=== PATIENT | female | born 1980 | race Two or more races ===

== ENCOUNTER 2018-11-10 12:03 | Emergency (ER) | payer MEDICAID ==
[~2018-11-10] VITALS: Ht 152.4 cm; Wt 98.4 kg
[2018-11-10] MEDS ORDERED: SEROQUEL200 MG ORAL (12:13)
--- NOTE | 2018-11-10 12:19 | NUR ---
ED Nurse Note: pt came to ED self ambulatory. pt c/o bodyaches getting worse over the weeks. pt pain 04/16. pt states taking motrin but has not taken any today. will wait for further orders.
[2018-11-10 12:20] VITALS: BP 131/77
--- NOTE | 2018-11-10 12:24 | Emergency Room Report ---
History of Present Illness General Chief Complaint: Pain Source: Patient Present Illness HPI Patient is a 38-year-old female presents for after increased generalized body aches. Patient reports that this is worsened over the past 1 week. Patient had been having symptoms for several months. Patient had been taking Seroquel for bipolar disorder. She denies any fever. She denies any vomiting. She states she gets intermittent headaches. She denies any new numbness or weakness. Pain was described as aching throughout her entire body. She denies any recent changes in her medications. She denies being . Allergies: Coded Allergies: PENICILLINS (Verified Allergy, Unknown, rash, 11/10/18) Patient History Past Medical History: see triage record Last Menstrual Period: 10/24/18 Reviewed Nursing Documentation: PMH: Agreed; PSxH: Agreed Nursing Documentation-PM Past Medical History: No History, Except For History Of Psychiatric Problem: Yes - bipolar Review of Systems All Other Systems: negative except mentioned in HPI Physical Exam Vital Signs Date Time Temp Pulse Resp B/P (MAP) Pulse Ox O2 Delivery O2 Flow Rate FiO2 11/10/18 12:10 98.2 109 18 138/86 97 Room Air Sp02 EP Interpretation: reviewed, normal General Appearance: normal inspection, well appearing, no apparent distress, alert, GCS 15, obese Head: atraumatic ENT: normal ENT inspection, hearing grossly normal, normal voice Neck: normal inspection, full range of motion, supple, no bony tend Respiratory: normal inspection, lungs clear, normal breath sounds, no respiratory distress, no retraction, no wheezing Cardiovascular #1: regular rate, rhythm, no edema Gastrointestinal: normal inspection, normal bowel sounds, non tender, soft, no guarding, no hernia Genitourinary: no CVA tenderness Musculoskeletal: normal inspection, back normal, normal range of motion Neurologic: normal inspection, alert, oriented x3, responsive, 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 Differential diagnosis included was not limited to anemia, urinary tract infection, electrolyte abnormality, hypothyroidism, myocardial infarction, myasthenia gravis, dehydration, fibromyalgia among others. Because of complexity of patient's case laboratory testing and imaging studies were ordered. Patient was noted to have nonspecific pain. This is been long-standing. Laboratory testing was ordered to rule out thyroid abnormalities or rhabdomyolysis. Patient was given IV fluids. She was noted to have prior history of fibromyalgia in her family. Patient does not show any definite evidence of dehydration or rhabdomyolysis. Patient states that she does smoke and use marijuana intermittently. Patient's laboratory testing was unremarkable. Patient was advised to have a white blood count rechecked. She is advised to follow-up with her primary care physician for further workup which may include further workup for rheumatoid disease and imaging studies. Patient was advised smoking cessation. She does not appear to be in any acute distress. She was advised to return if she felt worse. Labs Test 11/10/18 12:40 White Blood Count 11.5 K/UL (4.8-10.8) Red Blood Count 4.69 M/UL (4.20-5.40) Hemoglobin 13.6 G/DL (12.0-16.0) Hematocrit 42.4 % (37.0-47.0) Mean Corpuscular Volume 91 FL (80-99) Mean Corpuscular Hemoglobin 29.0 PG (27.0-31.0) Mean Corpuscular Hemoglobin Concent 32.0 G/DL (32.0-36.0) Red Cell Distribution Width 12.7 % (11.6-14.8) Platelet Count 358 K/UL (150-450) Mean Platelet Volume 6.5 FL (6.5-10.1) Neutrophils (%) (Auto) 57.3 % (45.0-75.0) Lymphocytes (%) (Auto) 30.6 % (20.0-45.0) Monocytes (%) (Auto) 8.5 % (1.0-10.0) Eosinophils (%) (Auto) 2.2 % (0.0-3.0) Basophils (%) (Auto) 1.4 % (0.0-2.0) Urine Color Pale yellow Urine Appearance Clear Urine pH 8 (4.5-8.0) Urine Specific [place] 1.010 (1.005-1.035) Urine Protein Negative (NEGATIVE) Urine Glucose (UA) Negative (NEGATIVE) Urine Ketones Negative (NEGATIVE) Urine Blood Negative (NEGATIVE) Urine Nitrite Negative (NEGATIVE) Urine Bilirubin Negative (NEGATIVE) Urine Urobilinogen Normal MG/DL (0.0-1.0) Urine Leukocyte Esterase Negative (NEGATIVE) Urine RBC 0 /HPF (0 - 2) Urine WBC 0 /HPF (0 - 2) Urine Squamous Epithelial Cells Few /LPF (NONE/OCC) Urine Bacteria Occasional /HPF (NONE) Urine HCG, Qualitative Negative (NEGATIVE) Sodium Level 137 MMOL/L (136-145) Potassium Level 4.0 MMOL/L (3.5-5.1) Chloride Level 101 MMOL/L (98-107) Carbon Dioxide Level 26 MMOL/L (21-32) Anion Gap 10 mmol/L (5-15) Blood Urea Nitrogen 13 mg/dL (7-18) Creatinine 1.0 MG/DL (0.55-1.30) Estimat Glomerular Filtration Rate > 60 mL/min (>60) Glucose Level 92 MG/DL (74-106) Calcium Level 9.7 MG/DL (8.5-10.1) Total Bilirubin 0.4 MG/DL (0.2-1.0) Aspartate Amino Transf (AST/SGOT) 16 U/L (15-37) Alanine Aminotransferase (ALT/SGPT) 22 U/L (12-78) Alkaline Phosphatase 61 U/L (46-116) Total Creatine Kinase 209 U/L (26-308) Total Protein 7.5 G/DL (6.4-8.2) Albumin 3.6 G/DL (3.4-5.0) Globulin 3.9 g/dL Albumin/Globulin Ratio 0.9 (1.0-2.7) Thyroid Stimulating Hormone (TSH) 1.054 uiU/mL (0.358-3.740) Last Vital Signs Date Time Temp Pulse Resp B/P (MAP) Pulse Ox O2 Delivery O2 Flow Rate FiO2 11/10/18 12:10 98.2 109 18 138/86 97 Room Air Status: improved Disposition: HOME, SELF-CARE Condition: Stable Scripts Ibuprofen* (MOTRIN*) 600 Mg Tablet 600 MG ORAL Q8H PRN for For Pain, #30 TAB 0 Refills Prov: Sukhjinder Mak MD 11/10/18 Sukhjinder Mak MD Nov 10, 2018 12:24
[2018-11-10] MEDS ORDERED: Ketorolac 30mg Inj IV ONE (12:30)
[2018-11-10 12:52] LABS: BASOPHILS % (AUTO) 1.4 % (0.0-2.0); EOSINOPHILS % (AUTO) 2.2 % (0.0-3.0); HEMATOCRIT 42.4 % (37.0-47.0); HEMOGLOBIN 13.6 G/DL (12.0-16.0); LYMPHOCYTES % (AUTO) 30.6 % (20.0-45.0); MEAN CORPUSCULAR VOLUME 91 FL (80-99); MONOCYTES % (AUTO) 8.5 % (1.0-10.0); NEUTROPHILS % (AUTO) 57.3 % (45.0-75.0); PLATELET COUNT 358 K/UL (150-450); RED BLOOD COUNT 4.69 M/UL (4.20-5.40); RED CELL DISTRIBUTION WIDTH 12.7 % (11.6-14.8); WHITE BLOOD COUNT 11.5 K/UL (4.8-10.8)
[2018-11-10 12:58] LABS: APPEARANCE,URINE CLEAR; BILIRUBIN, URINE NEGATIVE (NEGATIVE); COLOR,URINE PALE YELLOW; GLUCOSE, URINE (UA) NEGATIVE (NEGATIVE); KETONES,URINE NEGATIVE (NEGATIVE); LEUKOCYTE ESTERASE ,URINE NEGATIVE (NEGATIVE); NITRITE,URINE NEGATIVE (NEGATIVE); PH,URINE 8 (4.5-8.0); PROTEIN,URINE NEGATIVE (NEGATIVE); UROBILINOGEN,URINE NORMAL MG/DL (0.0-1.0)
[2018-11-10 13:06] LABS: ANION GAP 10 mmol/L (5-15); BLOOD UREA NITROGEN 13 mg/dL (7-18); CALCIUM 9.7 MG/DL (8.5-10.1); CARBON DIOXIDE 26 MMOL/L (21-32); CHLORIDE 101 MMOL/L (98-107); SODIUM 137 MMOL/L (136-145)
[2018-11-10 13:19] LABS: ALANINE AMINOTRANSFERASE 22 U/L (12-78); ALBUMIN 3.6 G/DL (3.4-5.0); ALBUMIN/GLOBULIN RATIO 0.9 (1.0-2.7); ALKALINE PHOSPHATASE 61 U/L (46-116); ASPARTATE AMINO TRANSFERASE 16 U/L (15-37); BILIRUBIN,TOTAL 0.4 MG/DL (0.2-1.0); CREATINE KINASE 209 U/L (26-308)
[2018-11-10] MEDS ORDERED: IBUPROFEN600 MG ORAL (14:06)
--- NOTE | 2018-11-10 14:18 | NUR ---
ED Nurse Note: Pt is DC per MD orders, pt was given dc and prescription education. pt ID band removed. pt Iv site discontinued. pt is aao x 4. vital signs stable. pt is ambulatory with steady gait. pt has left with all belongings.
[2018-11-10 14:20] VITALS: BP 128/68
== END 2018-11-10 14:18 | disposition home or self-care (01) ==
LOC: EMR 12:25
DX: M79.10 Myalgia, unspecified site (principal); F31.9 Bipolar disorder, unspecified; F17.200 Nicotine dependence, unspecified, uncomplicated; Z88.0 Allergy status to penicillin
CPT/HCPCS: 36415; 80053; 81001; 81025; 82550; 84443; 85025; 96374; 99284; J1885

== ENCOUNTER 2019-04-20 00:29 | Emergency (ER) | payer MEDICAID ==
[~2019-04-20] VITALS: Ht 152.4 cm; Wt 99.8 kg
[~2019-04-20 00:29] MED LIST: IBUPROFEN600 MG ORAL; SEROQUEL200 MG ORAL
[2019-04-20 00:37] VITALS: BP 126/78
--- NOTE | 2019-04-20 00:37 | NUR ---
ED Nurse Note: Pt arrived ED from home, c/o left ear pain for 2 days. Pt is A/O X4. VSS, waiting for orders.
--- NOTE | 2019-04-20 01:08 | Emergency Room Report ---
History of Present Illness General Chief Complaint: Earache Source: Patient Present Illness HPI Patient presents with left ear pain. This is going on for 2 days. She also has pain radiates down her neck slightly. She denies any sore throat, fever, nasal congestion. She has been aggressively cleaning the ear. She also has a minimal amount of discomfort on the right-hand side. The pain is rated 7/10, constant, pressure and aching. There are no skin rashes. She is in a [facility]. She feels safe. She denies being at this time. No dysuria, nausea, vomiting, diarrhea , abdominal pain, chest pain, productive cough. Allergies: Coded Allergies: PENICILLINS (Verified Allergy, Unknown, rash, 11/10/18) Patient History Past Medical History: see triage record Social History: Reports: smoking Social History Narrative [facility] Last Menstrual Period: 03/22/19 : 9 Para: 3 Reviewed Nursing Documentation: PMH: Agreed; PSxH: Agreed Nursing Documentation-PMH Past Medical History: No Stated History Review of Systems All Other Systems: negative except mentioned in HPI Physical Exam Vital Signs Date Time Temp Pulse Resp B/P (MAP) Pulse Ox O2 Delivery O2 Flow Rate FiO2 04/20/19 00:33 97.9 101 18 126/78 (94) 97 Room Air Sp02 EP Interpretation: reviewed, normal General Appearance: well appearing, no apparent distress, GCS 15 Head: normocephalic, atraumatic Eyes: bilateral eye normal inspection, bilateral eye PERRL ENT: hearing grossly normal, normal voice, other - Left TM with redness and opacity and bulging. Minimal pinna tenderness with motion. Mastoid is nontender to palpation. Right TM normal but canal has some cerumen. No pain at tenderness Neck: full range of motion, supple, no meningismus, no bony tend Respiratory: chest non-tender, lungs clear, normal breath sounds, no respiratory distress, speaking full sentences Cardiovascular #1: regular rate, rhythm Cardiovascular #2: 2+ radial (R) Gastrointestinal: normal inspection Musculoskeletal: digits/nails normal, gait/station normal, normal range of motion Neurologic: alert, oriented x3, grossly normal Psychiatric: mood/affect normal Skin: no rash Medical Decision Making Diagnostic Impression: Primary Impression: Otitis media Qualified Codes: H66.002 - Acute suppurative otitis media without spontaneous rupture of ear drum, left ear Additional Impression: Otitis externa Qualified Codes: H60.502 - Unspecified acute noninfective otitis externa, left ear ER Course Patient presents with left ear pain. Differential includes otitis media, otitis externa, mastoiditis amongst others. Exam is consistent with otitis media. Patient is treated for pain as well as antibiotics begun. Levaquin used as need to cover pseudamonas and patient allergic to PCN. Discussed treatment plan with patient. Patient stable for outpatient observation and treatment. Last Vital Signs Date Time Temp Pulse Resp B/P (MAP) Pulse Ox O2 Delivery O2 Flow Rate FiO2 04/20/19 01:44 97.9 04/20/19 01:21 83 18 123/76 97 Room Air Status: improved Disposition: HOME, SELF-CARE Condition: Improved Scripts Ibuprofen* (MOTRIN*) 600 Mg Tablet 600 MG ORAL Q6H PRN for For Pain, #20 TAB 0 Refills Prov: Son Mckay MD 04/20/19 Hydrocodone Bit/Acetaminophen 5-325* (NORCO 5-325*) 1 Each Tablet 1 TAB ORAL Q6H PRN for For Pain, #8 TAB 0 Refills Prov: Son Mckay MD 04/20/19 Neomycin/Polymyxin B Sulf/Hc* (CORTISPORIN EAR SOLUTION*) 10 Ml Solution 4 DROP LEFT EAR QID, #10 ML 0 Refills Prov: Son Mckay MD 04/20/19 Levofloxacin* (LEVAQUIN*) 500 Mg Tablet 500 MG ORAL DAILY, #7 TAB Prov: Son Mckay MD 04/20/19 Son Mckay MD Apr 20, 2019 01:08
[2019-04-20] MEDS ORDERED: LEVAQUIN500 MG ORAL (01:10)
[2019-04-20] MEDS ORDERED: CORTISPORIN EAR10 ML LEFT EAR (01:10)
[2019-04-20] MEDS ORDERED: NORCO 5-325 TA1 EACH ORAL (01:10)
[2019-04-20] MEDS ORDERED: IBUPROFEN600 MG ORAL (01:10)
[2019-04-20] MEDS ORDERED: HYDROcodone/Acetamin 5/325 tab ORAL ONE (01:15)
[2019-04-20] MEDS ORDERED: Levofloxacin 500mg tab ORAL ONE (01:15)
[2019-04-20 01:21] VITALS: BP 123/76
--- NOTE | 2019-04-20 01:21 | NUR ---
ER DISCHARGE NOTE: Patient is cleared to be discharged per Dr. Mckay. Pt is aox4 on room air with stable vital signs. Pt was given dc and prescription instructions and was able to verbalize understanding. Pt's id band removed. Pt is able to ambulate with steady gait and took all belongings.
== END 2019-04-20 01:21 | disposition home or self-care (01) ==
LOC: EMR 00:59
DX: H66.002 Acute suppurative otitis media without spontaneous rupture of ear drum, left ear (principal); H60.502 Unspecified acute noninfective otitis externa, left ear; Z88.0 Allergy status to penicillin; F17.200 Nicotine dependence, unspecified, uncomplicated
CPT/HCPCS: 99283

== ENCOUNTER 2019-04-30 15:32 | Emergency (ER) | payer MEDICAID ==
[~2019-04-30] VITALS: Ht 152.4 cm; Wt 90.7 kg
[~2019-04-30 15:32] MED LIST changes: +CORTISPORIN EAR10 ML LEFT EAR; +LEVAQUIN500 MG ORAL; +NORCO 5-325 TA1 EACH ORAL
[2019-04-30] MEDS ORDERED: PROZAC10 MG ORAL (15:43)
[2019-04-30 15:46] VITALS: BP 135/69
--- NOTE | 2019-04-30 15:47 | NUR ---
ED Nurse Note: pt walked in to ED due to multiple pain. c/o right knee and abdominal pain. no n/v/d. AAO x4. respirations even and non-labored noted. will wait for the further order.
[2019-04-30] MEDS ORDERED: Ketorolac 30mg Inj IM ONE (16:00)
[2019-04-30 16:51] LABS: BASOPHILS % (AUTO) 0.8 % (0.0-2.0); EOSINOPHILS % (AUTO) 2.9 % (0.0-3.0); HEMATOCRIT 34.4 % (37.0-47.0); HEMOGLOBIN 11.8 G/DL (12.0-16.0); LYMPHOCYTES % (AUTO) 34.7 % (20.0-45.0); MEAN CORPUSCULAR VOLUME 85 FL (80-99); MONOCYTES % (AUTO) 11.7 % (1.0-10.0); NEUTROPHILS % (AUTO) 49.8 % (45.0-75.0); PLATELET COUNT 312 K/UL (150-450); RED BLOOD COUNT 4.04 M/UL (4.20-5.40); WHITE BLOOD COUNT 9.9 K/UL (4.8-10.8)
[2019-04-30 17:01] LABS: APPEARANCE,URINE CLEAR; BILIRUBIN, URINE NEGATIVE (NEGATIVE); COLOR,URINE PALE YELLOW; GLUCOSE, URINE (UA) NEGATIVE (NEGATIVE); KETONES,URINE NEGATIVE (NEGATIVE); LEUKOCYTE ESTERASE ,URINE 1+ (NEGATIVE); NITRITE,URINE NEGATIVE (NEGATIVE); PH,URINE 7 (4.5-8.0); PROTEIN,URINE NEGATIVE (NEGATIVE); UROBILINOGEN,URINE NORMAL MG/DL (0.0-1.0)
[2019-04-30 17:05] LABS: ANION GAP 9 mmol/L (5-15); BLOOD UREA NITROGEN 11 mg/dL (7-18); CALCIUM 9.5 MG/DL (8.5-10.1); CARBON DIOXIDE 27 MMOL/L (21-32); CHLORIDE 107 MMOL/L (98-107); CREATININE 0.9 MG/DL (0.55-1.30); POTASSIUM 4.2 MMOL/L (3.5-5.1); SODIUM 143 MMOL/L (136-145)
[2019-04-30 17:10] LABS: ALANINE AMINOTRANSFERASE 38 U/L (12-78); ALBUMIN 3.5 G/DL (3.4-5.0); ALBUMIN/GLOBULIN RATIO 0.9 (1.0-2.7); ALKALINE PHOSPHATASE 61 U/L (46-116); ASPARTATE AMINO TRANSFERASE 19 U/L (15-37); BILIRUBIN,TOTAL 0.1 MG/DL (0.2-1.0)
--- NOTE | 2019-04-30 17:36 | Emergency Room Report ---
History of Present Illness General Chief Complaint: Pain Source: Patient Present Illness HPI 38-year-old female with history of generalized body ache, who was previously seen for the same reason here few months ago here complaining of increased aching in the past few days. Rating her pain 10 out of 10 without radiation denying tingling and numbness. Patient is previously told at [facility] that she possibly has fibromyalgia and needs to follow-up with her primary care provider for further testing referrals. Patient reports that she just went to her primary care provider few days ago due to abdominal pain and bloating was diagnosed with H. pylori and started on proper management. However forgot to discuss her generalized pain of several months with her PCP. Patient reports that she has been taking [id number] ibuprofen and Tylenol with minimal relief and asking for stronger pain medication. She is also requesting blood work for possible causes of generalized body ache. Denies injury, fall, chest pain, shortness of breath, palpitation, nausea vomiting. Denies drug use, smoking, alcohol intake. She also complains of generalized swelling all over her body. Allergies: Coded Allergies: PENICILLINS (Verified Allergy, Unknown, rash, 11/10/18) Patient History Past Medical History: see triage record Past Surgical History: unable to obtain Pertinent Family History: none Now: No Immunizations: UTD Reviewed Nursing Documentation: PMH: Agreed; PSxH: Agreed Nursing Documentation-PMH Past Medical History: No History, Except For Review of Systems All Other Systems: negative except mentioned in HPI Physical Exam Vital Signs Date Time Temp Pulse Resp B/P (MAP) Pulse Ox O2 Delivery O2 Flow Rate FiO2 04/30/19 15:39 98.4 98 18 135/69 (91) 96 Room Air Sp02 EP Interpretation: reviewed, normal General Appearance: normal inspection, alert, GCS 15 Head: normocephalic, atraumatic Eyes: bilateral eye normal inspection, bilateral eye PERRL ENT: normal ENT inspection, hearing grossly normal, normal pharynx Neck: normal inspection, full range of motion, supple Respiratory: normal inspection, chest non-tender, normal breath sounds, no rhonchi, no wheezing Cardiovascular #1: normal inspection, regular rate, rhythm, no gallop, no murmur, normal capillary refill Cardiovascular #2: 2+ dorsalis pedis (R), 2+ dorsalis pedis (L) Gastrointestinal: normal inspection, normal bowel sounds, non tender, soft Genitourinary: no CVA tenderness Musculoskeletal: normal inspection, back normal, digits/nails normal Neurologic: normal inspection, alert, oriented x3, responsive, 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 Jones Diagnostic Impression: Primary Impression: Iron deficiency anemia Additional Impression: Generalized body aches ER Course 38-year-old female with history of generalized body ache, who was previously seen for the same reason here few months ago here complaining of increased aching in the past few days. Rating her pain 10 out of 10 without radiation denying tingling and numbness. Patient is previously told at [facility] that she possibly has fibromyalgia and needs to follow-up with her primary care provider for further testing referrals. Patient reports that she just went to her primary care provider few days ago due to abdominal pain and bloating was diagnosed with H. pylori and started on proper management. However forgot to discuss her generalized pain of several months with her PCP. Patient reports that she has been taking [id number] ibuprofen and Tylenol with minimal relief and asking for stronger pain medication. She is also requesting blood work for possible causes of generalized body ache. Denies injury, fall, chest pain, shortness of breath, palpitation, nausea vomiting. Denies drug use, smoking, alcohol intake. She also complains of generalized swelling all over her body. Ddx considered but are not limited to: Generalized body aches chronic, iron deficiency anemia, fibromyalgia, H. pylori, Vital signs: are WNL, pt. is afebrile H&PE are most consistent with: generalized body aches chronic, iron deficiency anemia ORDERS: cbc, cmp, UA, toradol, robaxin, ibuprofen, ferrous sulfate ED INTERVENTIONS: toradol DISCHARGE: At this time pt. is stable for d/c to home. Will provide printed patient care instructions, and any necessary prescriptions. Care plan and follow up instructions have been discussed with the patient prior to discharge. Patient to follow-up with a primary care provider for management of possible fibromyalgia patient to be sent to pain management as well as physical therapy also more nerve related pain medication to be started by primary care physician. At this point I discussed with the patient in no stronger pain medication can be given and due to her having generalized swelling anti- inflammatories are highly advised. Also her abdominal bloating and pain is secondary to H. pylori infection as well as intake of metronidazole. Hemoglobin 11 hematocrit 33 Last Vital Signs Date Time Temp Pulse Resp B/P (MAP) Pulse Ox O2 Delivery O2 Flow Rate FiO2 04/30/19 15:46 98.4 98 18 135/69 96 Room Air Disposition: HOME, SELF-CARE Condition: Stable Scripts Ibuprofen* (MOTRIN*) 600 Mg Tablet 600 MG ORAL Q8H PRN for For Pain, #30 TAB 0 Refills Prov: Nadya Waldron 04/30/19 Methocarbamol* (ROBAXIN*) 500 Mg Tablet 500 MG PO TID, #21 TAB 0 Refills Prov: Nadya Waldron 04/30/19 Ferrous Sulfate (Ferrous Sulfate) 325 Mg Tablet 1 TAB ORAL TWICE A DAY, #60 TAB 0 Refills Prov: Nadya Waldron 04/30/19 Referrals: [facility]ERR[facility] (PCP) Patient Instructions: Iron Deficiency Anemia, Adult, [id number], Muscle Pain , Adult Additional Instructions: Follow-up with the primary care provider for possible fibromyalgia assessment take medication as directed minimal iron deficiency anemia noted take your iron pills as been prescribed. At this point you have chronic muscle ache that needs to be evaluated by primary care doctor and further referrals which can be requested by your primary care physician. Nadya Waldron Apr 30, 2019 17:35
[2019-04-30] MEDS ORDERED: IBUPROFEN600 MG ORAL (17:44)
[2019-04-30] MEDS ORDERED: ROBAXIN500 MG PO (17:44)
[2019-04-30] MEDS ORDERED: FEOSOL1 TAB ORAL (17:44)
[2019-04-30 17:57] VITALS: BP 127/70
--- NOTE | 2019-04-30 17:58 | NUR ---
ER DISCHARGE NOTE: Patient is cleared to be discharged per ERMD, pt is aox4, on room air, with stable vital signs. pt was given dc and prescription instructions, pt was able to verbalize understanding, pt id band removed. pt is able to ambulate with steady gait. pt took all belongings.
== END 2019-04-30 17:59 | disposition home or self-care (01) ==
LOC: EMR 17:25
DX: D50.9 Iron deficiency anemia, unspecified (principal); R52 Pain, unspecified; Z88.0 Allergy status to penicillin
CPT/HCPCS: 36415; 80053; 81001; 85025; 96372; 99283; J1885

== ENCOUNTER 2019-05-25 20:01 | Emergency (ER) | payer MEDICAID ==
[~2019-05-25] VITALS: Ht 157.5 cm; Wt 100.2 kg
[~2019-05-25 20:01] MED LIST changes: +FEOSOL1 TAB ORAL; +PROZAC10 MG ORAL; +ROBAXIN500 MG PO
--- NOTE | 2019-05-25 20:22 | NUR ---
ED Nurse Note: pt walked in c/o heartburn and acid reflux about 2 days, pt states she recently finished regimen for hpylori and has hx GERD but ran out of medication pt states she needs pain medication for fibromyalgia, pt recently diagnosed with fibromyalgia pt states she had toradol injection and worked for her pain. pt AA&ox4, -n/v/d, ambulates w/ steady gait, vss, will cont monitor.
[2019-05-25] MEDS ORDERED: Dicyclomine HCl 10mg/5ml oral soln ORAL ONE (20:30)
[2019-05-25] MEDS ORDERED: Ketorolac 60mg Inj IM ONE (20:30)
[2019-05-25] MEDS ORDERED: Lidocaine 2% Visc 15ml soln ORAL ONE (20:30)
[2019-05-25 20:31] VITALS: BP 120/83
--- NOTE | 2019-05-25 20:36 | Emergency Room Report ---
History of Present Illness General Chief Complaint: Gastrointestinal Illness Source: Patient Present Illness HPI She is a 38-year-old female brought in by self after increased burning sensation to her throat and stomach. Patient recently finished a treatment for H. pylori. She had prior history of esophageal reflux which is long-standing. Patient reports having continued caffeine use. She states that she also has prior history of bipolar disorder. She reports taking omeprazole in the past which worked better than her current medications. She denies any fever or vomiting. She additionally reports having worsening pain from her fibromyalgia. She denies any diarrhea or bloody stools. She had prior tubal ligation.Patient denies any chest discomfort or exertional symptoms. Allergies: Coded Allergies: PENICILLINS (Verified Allergy, Unknown, rash, 11/10/18) Patient History Past Medical History: see triage record Last Menstrual Period: 04/22/19 Now: No : 3 Para: 3 Reviewed Nursing Documentation: PMH: Agreed; PSxH: Agreed Review of Systems All Other Systems: negative except mentioned in HPI Physical Exam Vital Signs Date Time Temp Pulse Resp B/P (MAP) Pulse Ox O2 Delivery O2 Flow Rate FiO2 05/25/19 20:18 97.9 102 18 120/83 (95) 96 Room Air General Appearance: well appearing, no apparent distress, alert, GCS 15, obese Head: normocephalic, atraumatic ENT: hearing grossly normal, normal voice Neck: full range of motion, supple Respiratory: lungs clear, no respiratory distress, speaking full sentences Cardiovascular #1: normal inspection, regular rate, rhythm Gastrointestinal: normal inspection, non tender, soft Musculoskeletal: normal inspection, no calf tenderness Neurologic: normal inspection, alert, oriented x3, responsive, motor strength/ tone normal, normal gait Psychiatric: mood/affect normal Skin: no rash Medical Decision Making ER Course Patient presented for abdominal pain. Differential diagnosis include was not limited to gastritis, acid reflux, viral enteritis, among others. Patient has a benign exam and does not appear to require any further imaging or laboratory testing at this time. Patient does not appear to have any systemic symptoms and does not appear to be in any acute distress. Patient was given a GI cocktail. Patient was advised to recheck with her primary care physician. She will be given a trial of medications due to fibromyalgia. Last Vital Signs Date Time Temp Pulse Resp B/P (MAP) Pulse Ox O2 Delivery O2 Flow Rate FiO2 05/25/19 20:18 97.9 102 18 120/83 (15) 96 Room Air Status: improved Disposition: HOME, SELF-CARE Condition: Stable Sukhjinder Mak MD May 25, 2019 20:36
[2019-05-25] MEDS ORDERED: LYRICA25 MG ORAL (20:39)
[2019-05-25] MEDS ORDERED: OMEPRAZOLE20 M3 ORAL (20:39)
[2019-05-25 20:45] VITALS: BP 118/83
--- NOTE | 2019-05-25 20:45 | NUR ---
ED Nurse Note: pt cleared to be d/c per ERMD, pt discharge and aftercare instruction provided w/ prescription, pt education done via discussion and handout, pt advised to follow up with pcp or return to ed if changes in condition, vss, ambulatory w/ steady gait, left w/ all belongings.
== END 2019-05-25 20:45 | disposition home or self-care (01) ==
LOC: EMR 20:33
DX: R10.9 Unspecified abdominal pain (principal); Z88.0 Allergy status to penicillin; K21.9 Gastro-esophageal reflux disease without esophagitis; F31.9 Bipolar disorder, unspecified; E66.9 Obesity, unspecified; Z68.41 Body mass index [BMI] 40.0-44.9, adult
CPT/HCPCS: 96372; 99283

== ENCOUNTER 2019-09-12 15:07 | Emergency (ER) | payer MEDICAID ==
[~2019-09-12] VITALS: Ht 152.4 cm; Wt 104.3 kg
[~2019-09-12 15:07] MED LIST changes: +LYRICA25 MG ORAL; +OMEPRAZOLE20 M3 ORAL
[2019-09-12] MEDS ORDERED: HYDROXYZINE HCL25 M1 PO (15:18)
[2019-09-12 15:22] VITALS: BP 135/77
--- NOTE | 2019-09-12 15:22 | NUR ---
ED Nurse Note: PT WALKED IN FOR EVALUATION. PT WAS SENT BY HER PSYCHIATRIST TODAY AND HER BP ON R ARM 163/110 AND L ARM- 154/102. PT ALSO STATES SHE HAS BEEN HAVING A HEADACHE X6 DAYS AFTER HAVING AN ORGASM. DENIES VOMITING BUT FEELING NAUSEATED. AAOX4, AMBULATORY WITH NON LABORED BREATHING.
--- NOTE | 2019-09-12 15:45 | Emergency Room Report ---
History of Present Illness General Chief Complaint: Headache Source: Patient Present Illness HPI 38 YO female presents to the ED c/o 06/16 in severity throbbing generalized MANCINI and neck stiffness x 6 days. Patient reports acute onset of the headaches after having orgasm status post digital manipulation patient denies nausea or vomiting, fevers or chills. Patient denies visual changes. Pt. denies recent illness. reports hx of Bipolar, and OD in 2017 which she states she had CHF and transient hemiparalysis which resolved on its own without deficits. Pt. currently is taking Abilify, Rmeron, PRozac and up until 3 days ago was also on gabapentin. Pt. states she has been taking 600mg IBU QID without relief of her MANCINI symptoms. Denies paresthesias, motor weakness, slurred speech, or AMS/LOC. She denies CP, Palpitations or LE swelling. Denies rashes or illicit drug use. Allergies: Coded Allergies: PENICILLINS (Verified Allergy, Unknown, rash, 11/10/18) Patient History Past Medical History: see triage record, CHF Past Surgical History: none Pertinent Family History: none Last Menstrual Period: 08/26/19 Now: No Reviewed Nursing Documentation: PMH: Agreed; PSxH: Agreed Review of Systems All Other Systems: negative except mentioned in HPI Physical Exam Vital Signs Date Time Temp Pulse Resp B/P (MAP) Pulse Ox O2 Delivery O2 Flow Rate FiO2 09/12/19 15:12 98.2 95 19 138/83 (101) 97 Room Air Sp02 EP Interpretation: reviewed, normal General Appearance: no apparent distress, alert, GCS 15, non-toxic Head: normocephalic, atraumatic Eyes: bilateral eye normal inspection, bilateral eye PERRL, bilateral eye other - no photophobia ENT: hearing grossly normal, normal voice Neck: full range of motion, no meningismus Respiratory: lungs clear, normal breath sounds, speaking full sentences Cardiovascular #1: regular rate, rhythm Genitourinary: no CVA tenderness Musculoskeletal: back normal, gait/station normal, normal range of motion, non- tender Neurologic: alert, oriented x3, responsive, motor strength/tone normal, sensory intact, normal gait, speech normal, no pronator, other - normal finger to nose., grossly normal Psychiatric: judgement/insight normal Medical Decision Making PA Attestation Dr. Mak is my supervising Physician whom patient management has been discussed with. Diagnostic Impression: Primary Impression: Headache Qualified Codes: R51 - Headache ER Course 38 YO female presents to the ED c/o 06/16 in severity throbbing generalized MANCINI and neck stiffness x 6 days. Patient reports acute onset of the headaches after having orgasm status post digital manipulation patient denies nausea or vomiting, fevers or chills. Patient denies visual changes. Pt. denies recent illness. reports hx of Bipolar, and OD in 2017 which she states she had CHF and transient hemiparalysis which resolved on its own without deficits. Pt. currently is taking Abilify, Rmeron, PRozac and up until 3 days ago was also on gabapentin. Pt. states she has been taking 600mg IBU QID without relief of her MANCINI symptoms. Denies paresthesias, motor weakness, slurred speech, or AMS/LOC. She denies CP, Palpitations or LE swelling. Denies rashes or illicit drug use. Ddx considered but are not limited to migraine, SAH, Pseudomotor Cerebri,, Mass lesion, Cluster MANCINI, Tension MANCINI, Post lumbar puncture MANCINI. Vital signs: are WNL, pt. is afebrile H&PE are most consistent with migraine headache ORDERS: - CBC: WNL -PT/PTT: WNL -Urine Hcg:Negative -UA:WNL CT Head Non-Con:WNL ED INTERVENTIONS: - Reglan IV - Benadryl IV -Toradol IV -Excedrin Migraine PO -I do not identify an emergent condition at this time. With current presentation , pt. is stable for close outpatient follow up and conservative treatment. D/ w pt. to return promptly to ED with worsening or new symptoms.- Pt. verbalizes' understanding and agreement with proposed treatment plan. DISCHARGE: At this time pt. is stable for d/c to home. Will provide printed patient care instructions, and any necessary prescriptions. Care plan and follow up instructions have been discussed with the patient prior to discharge. Labs Test 09/12/19 15:45 White Blood Count 10.1 K/UL (4.8-10.8) Red Blood Count 4.89 M/UL (4.20-5.40) Hemoglobin 14.8 G/DL (12.0-16.0) Hematocrit 43.4 % (37.0-47.0) Mean Corpuscular Volume 89 FL (80-99) Mean Corpuscular Hemoglobin 30.3 PG (27.0-31.0) Mean Corpuscular Hemoglobin Concent 34.1 G/DL (32.0-36.0) Red Cell Distribution Width 11.7 % (11.6-14.8) Platelet Count 372 K/UL (150-450) Mean Platelet Volume 6.3 FL (6.5-10.1) Neutrophils (%) (Auto) 53.9 % (45.0-75.0) Lymphocytes (%) (Auto) 36.6 % (20.0-45.0) Monocytes (%) (Auto) 5.7 % (1.0-10.0) Eosinophils (%) (Auto) 2.2 % (0.0-3.0) Basophils (%) (Auto) 1.6 % (0.0-2.0) Prothrombin Time 10.7 SEC (9.30-11.50) Prothromb Time International Ratio 1.0 (0.9-1.1) Activated Partial Thromboplast Time 29 SEC (23-33) Urine Color Pale yellow Urine Appearance Clear Urine pH 5 (4.5-8.0) Urine Specific [employer] 1.020 (1.005-1.035) Urine Protein Negative (NEGATIVE) Urine Glucose (UA) Negative (NEGATIVE) Urine Ketones Negative (NEGATIVE) Urine Blood Negative (NEGATIVE) Urine Nitrite Negative (NEGATIVE) Urine Bilirubin Negative (NEGATIVE) Urine Urobilinogen Normal MG/DL (0.0-1.0) Urine Leukocyte Esterase Negative (NEGATIVE) Urine HCG, Qualitative Negative (NEGATIVE) CT/MRI/US Diagnostic Results CT/MRI/US Diagnostic Results : Imaging Test Ordered: CT Head No Contrast Impression " No evidence of acute fracture, hemorrhage, or intracranial process " Per official radiology report- Please see report for specific details. Last Vital Signs Date Time Temp Pulse Resp B/P (MAP) Pulse Ox O2 Delivery O2 Flow Rate FiO2 09/12/19 15:22 98.2 79 16 135/77 98 Room Air Status: improved Disposition: HOME, SELF-CARE Condition: Stable Scripts Aspirin/Acetaminophen/Caffeine (EXCEDRIN MIGRAINE GELTAB) 1 Each Tablet 2 EACH PO Q8HR, #30 TAB Prov: Lisset Tanner 09/12/19 Referrals: [facility],REFERRING (PCP) Patient Instructions: General Headache Without Cause Additional Instructions: Take medications as directed. Follow up with a Primary Care Provider in 3-5 days For a referral to have NEUROLOGIST Evaluation, even if your symptoms have resolved. --Please review list of primary care clinics, if you do not already have a primary care provider Return sooner to ED if new symptoms occur, or current symptoms become worse. - Please note that this Emergency Department Report was dictated using [employer] source operator technology software, occasionally this can lead to erroneous entry secondary to interpretation by the dictation equipment. Lisset Tanner Sep 12, 2019 15:45
--- NOTE | 2019-09-12 15:50 | NUR ---
ED Nurse Note: COLLECTED BLOOD/URINE THEN SENT.
--- NOTE | 2019-09-12 15:52 | NUR ---
ED Nurse Note: PT TAKEN TO CT VIA WHEELCHAIR AND STABLE.
[2019-09-12] MEDS ORDERED: Metoclopramide 10mg/2ml Inj IVP ONE ×2 (16:00→18:30)
[2019-09-12] MEDS ORDERED: DiphenhydrAMINE 50mg/ml Inj IVP ONE (16:00)
--- NOTE | 2019-09-12 16:01 | NUR ---
ED Nurse Note: PT CAME BACK FROM CT AND STABLE.
[2019-09-12 16:04] LABS: BASOPHILS % (AUTO) 1.6 % (0.0-2.0); EOSINOPHILS % (AUTO) 2.2 % (0.0-3.0); HEMATOCRIT 43.4 % (37.0-47.0); HEMOGLOBIN 14.8 G/DL (12.0-16.0); LYMPHOCYTES % (AUTO) 36.6 % (20.0-45.0); MEAN CORPUSCULAR VOLUME 89 FL (80-99); MONOCYTES % (AUTO) 5.7 % (1.0-10.0); NEUTROPHILS % (AUTO) 53.9 % (45.0-75.0); PLATELET COUNT 372 K/UL (150-450); RED BLOOD COUNT 4.89 M/UL (4.20-5.40); RED CELL DISTRIBUTION WIDTH 11.7 % (11.6-14.8); WHITE BLOOD COUNT 10.1 K/UL (4.8-10.8)
[2019-09-12 16:05] LABS: APPEARANCE,URINE CLEAR; BILIRUBIN, URINE NEGATIVE (NEGATIVE); COLOR,URINE PALE YELLOW; GLUCOSE, URINE (UA) NEGATIVE (NEGATIVE); KETONES,URINE NEGATIVE (NEGATIVE); LEUKOCYTE ESTERASE ,URINE NEGATIVE (NEGATIVE); NITRITE,URINE NEGATIVE (NEGATIVE); PH,URINE 5 (4.5-8.0); PROTEIN,URINE NEGATIVE (NEGATIVE); UROBILINOGEN,URINE NORMAL MG/DL (0.0-1.0)
--- NOTE | 2019-09-12 16:21 | Diagnostic Imaging Report ---
Indications: Headache Technique: Spiral acquisitions obtained through the brain. Angled axial and coronal 5 x 5 mm slices were reconstructed. Total dose length product 1457 mGycm. CTDI vol(s) 62 mGy. Dose reduction achieved using automated exposure control Comparison: None. Findings: No acute intracranial hemorrhage or edema. No mass effect nor midline shift. Normal bone-white differentiation. Normal size ventricles and extra axial CSF spaces. Intact calvarium. Visualized orbits and sinuses are unremarkable. The mastoids are clear. Impression: Negative The CT scanner at [facility] is accredited by the [employer] and the scans are performed using protocols designed to limit radiation exposure to as low as reasonably achievable to attain images of sufficient resolution adequate for diagnostic evaluation.
[2019-09-12] MEDS ORDERED: Ketorolac 30mg Inj IV ONE (17:30)
[2019-09-12] MEDS ORDERED: EXCEDRIN MIGRA1 EACH PO (17:51)
[2019-09-12 18:22] VITALS: BP 128/63
[2019-09-12] MEDS ORDERED: Excedrin Migraine tab ORAL ONE (18:30)
[2019-09-12 18:33] VITALS: BP 145/70
--- NOTE | 2019-09-12 18:33 | NUR ---
ER DISCHARGE NOTE: Patient is cleared to be discharged per PA, pt is aox4, on room air, with stable vital signs. pt was given dc and prescription instructions, pt was able to verbalize understanding, pt id band and iv site removed without complications. pt is able to ambulate with steady gait. pt took all belongings.
== END 2019-09-12 18:33 | disposition home or self-care (01) ==
LOC: EMR 15:29
DX: R51 Headache (principal); Z88.0 Allergy status to penicillin
CPT/HCPCS: 36415; 70450; 81003; 81025; 85025; 85610; 85730; 96361; 96374; 96375; J1200; J1885; J2765; Z7502; 99284; J7030

== ENCOUNTER 2020-01-28 11:44 | Emergency (ER) | payer MEDICAID ==
[~2020-01-28] VITALS: Ht 152.4 cm; Wt 97.5 kg
--- NOTE | 2020-01-28 11:38 | NUR ---
ED Nurse Note:ER MD notified about chest pain and EKG done
[~2020-01-28 11:44] MED LIST changes: +EXCEDRIN MIGRA1 EACH PO; +HYDROXYZINE HCL25 M1 PO
[2020-01-28] MEDS ORDERED: Albuterol/Ipratropium 3ml neb HHN ONE (11:45)
--- NOTE | 2020-01-28 11:52 | Emergency Room Report ---
History of Present Illness General Chief Complaint: Chest Pain Source: Patient Present Illness HPI Patient 39-year-old female presents after increased chest tightness. Onset of symptoms 4 days ago. Reports having increased generalized body pain. Prior history of fibromyalgia as well as asthma. Denies any fever. Denies any new leg swelling. Had been taking her inhalers without any improvement. Denies similar symptoms in the past. COVID-19 risk:Contact w/high r: No COVID-19 risk:Travel to affect: No Has patient experienced horvath: No Allergies: Coded Allergies: PENICILLINS (Verified Allergy, Unknown, rash, 11/10/18) Patient History Past Medical History: see triage record, asthma Now: No Reviewed Nursing Documentation: PMH: Agreed; PSxH: Agreed Nursing Documentation-PMH Past Medical History: No History, Except For Hx Cardiac Problems: Yes - CHF Review of Systems All Other Systems: negative except mentioned in HPI Physical Exam Vital Signs Date Time Temp Pulse Resp B/P (MAP) Pulse Ox O2 Delivery O2 Flow Rate FiO2 01/28/20 11:35 98.4 125 18 137/88 (104) 97 Room Air General Appearance: well appearing, no apparent distress, alert, GCS 15, obese Head: normocephalic, atraumatic ENT: hearing grossly normal, normal voice Neck: full range of motion, supple Respiratory: normal breath sounds, no respiratory distress, speaking full sentences Cardiovascular #1: normal inspection, regular rate, rhythm Gastrointestinal: normal inspection Musculoskeletal: no calf tenderness Neurologic: normal gait Psychiatric: mood/affect normal Skin: no rash Medical Decision Making Diagnostic Impression: Primary Impression: Chronic GERD Additional Impression: Fibromyalgia ER Course Patient presented for chest pain. Differential diagnosis included but was not limited to acute coronary syndrome, pulmonary embolism, pneumonia, aortic dissection, shingles, pneumothorax, aortic dissection, esophageal rupture, pericarditis. EKG showed sinus tachycardia with a rate of [address] or T wave changes. CXR showed normal cardiac size without evident infiltrate patient has normal oxygen saturation. Patient appears to have chest pain which does not appear to be concerning for [place]. She appears to be stable for outpatient management. EKG Diagnostic Results Rate: tachycardiac - 114 Rhythm: NSR ST Segments: no acute changes Rhythm Strip Diag. Results EP Interpretation: yes Rhythm: NSR, no PVC's, no ectopy Last Vital Signs Date Time Temp Pulse Resp B/P (MAP) Pulse Ox O2 Delivery O2 Flow Rate FiO2 01/28/20 11:35 98.4 125 18 137/88 (104) 97 Room Air Status: improved Disposition: HOME, SELF-CARE Condition: Stable Scripts Azithromycin* (ZITHROMAX*) 250 Mg Tablet 250 MG ORAL DAILY, #6 TAB 0 Refills Take two tables once daily for 1 day, then one tablet once daily for 4 days. Prov: Sukhjinder Mak MD 01/28/20 Albuterol Sulfate* (ALBUTEROL SULFATE MDI*) 8.5 Gm Hfa.aer.ad 2 PUFF INH Q6H, #1 INH 0 Refills Prov: Sukhjinder Mak MD 01/28/20 Prednisone* (PREDNISONE*) 20 Mg Tablet 40 MG ORAL DAILY, #10 TAB Prov: Sukhjinder Mak MD 01/28/20 Sukhjinder Mak MD Jan 28, 2020 11:51
[2020-01-28 11:55] VITALS: BP 137/88
--- NOTE | 2020-01-28 12:01 | NUR ---
ED Nurse Note:pt. c/o chest pain for 4 days no fever or cough reported, getting breathing treatment
[2020-01-28] MEDS ORDERED: ZITHROMAX250 MG ORAL (12:35)
[2020-01-28] MEDS ORDERED: PREDNISONE20 MG ORAL (12:35)
[2020-01-28] MEDS ORDERED: ALBUTEROL SULF8.5 GM INH (12:35)
[2020-01-28 12:46] VITALS: BP 137/88
--- NOTE | 2020-01-28 12:46 | NUR ---
ED Nurse Note: Pt cleared by health care Provider for discharge. DC instructions/prescription was given and explained to pt and verbalized understanding of teachings. All medical deviecs such as ID band removed. Pt is AAO x4, ambulatory and left with all personal belongings.
--- NOTE | 2020-01-28 12:48 | Diagnostic Imaging Report ---
Indication: Dyspnea Comparison: None A single view chest radiograph was obtained. Findings: Cardiomediastinal appearance is within normal limits for age. The lungs are clear. Pulmonary vascularity is appropriate. The diaphragmatic contour is smooth and costophrenic angles are sharp. No pleural effusions are identified. The bones are unremarkable. Impression: No acute findings
== END 2020-01-28 12:46 | disposition home or self-care (01) ==
LOC: EDBD 11:44 → EMR 11:50
DX: K21.9 Gastro-esophageal reflux disease without esophagitis (principal); M79.7 Fibromyalgia; R00.0 Tachycardia, unspecified; I50.9 Heart failure, unspecified; Z88.0 Allergy status to penicillin
CPT/HCPCS: 71045; 93005; J7512; Z7502; 99284; J7620